=== PATIENT | female | born 1955 | race Caucasian/White ===

== ENCOUNTER → 2018-11-05 | Outpatient (CLI) | payer OTHER ==
[~2018-11-05] MED LIST: ALLEGRA 180MG180 MG PO; ALLEGRA-D 24HOU1 T24 PO; DIOVAN HCT 25 M1 TA1 PO; EFFEXOR-XR150 MG PO; NEXIUM 40MG40 MG PO; NORVASC5 MG PO; PROTONIX 40MG T40 MG PO; TYLENOL EXTRA500 M1 PO; ULTRAM 50MG TAB50 MG PO; XANAX .25M0.25 MG/TA PO; ZOCOR 20MG20 MG PO; ZOCOR 40MG40 MG PO
== END ==
LOC: MC.RAD 10:50
DX: Z12.31 Encounter for screening mammogram for malignant neoplasm of breast (principal)

== ENCOUNTER 2022-02-01 07:23 | Day surgery (SDC) | payer OTHER ==
[~2022-02-01] VITALS: Ht 160 cm; Wt 84.1 kg
[2022-02-01] VITALS (13 sets, daily range): BP systolic 109–145; BP diastolic 61–73; PULSE 56–67; TEMP 97.8
[~2022-02-01 07:23] MED LIST changes: +NORVASC 5MG5 MG/TAB PO; -NORVASC5 MG PO; +TYLENOL 8 HR PO; -TYLENOL EXTRA500 M1 PO
[2022-02-01 08:35] LABS: HEMOGLOBIN 11.5 g/dl (12.5-16.0); MEAN CELL VOLUME 102 fl (80.0-100.0); MEAN CORPUSCULAR HEMOGLOBIN 33 pg (27-31); MEAN CORPUSCULAR HGB CONC 33 g/dl (33.0-37.0); MEAN PLATELET VOLUME 9.9 fl (7.4-10.4); PLATELET COUNT 306 K/mm3 (130-400); RED BLOOD COUNT 3.44 M/mm3 (4.10-5.30); REDCELL DISTRIBUTION WIDTH-CV 14.2 % (11.5-14.5)
[2022-02-01 08:36] LABS: HEMATOCRIT 34.9 % (37.0-47.0)
[2022-02-01] MEDS ORDERED: PROLIA60 MG/ML SQ (08:41)
[2022-02-01 08:42] LABS: INR 0.9 (0.8-3.0); PROTHROMBIN TIME 10.6 SECONDS (9.7-12.8)
[2022-02-01] MEDS ORDERED: TOPROL XL 25MG25 MG PO (08:42)
[2022-02-01] MEDS ORDERED: ZYLOPRIM 300MG300 MG PO (08:43)
[2022-02-01 08:45] LABS: PARTIAL THROMBOPLASTIN TIME 34.8 SECONDS (26.0-37.0)
[2022-02-01] MEDS ORDERED: LIPITOR 80MG80 MG PO (08:45)
[2022-02-01] MEDS ORDERED: WELLBUTRIN XL300 M1 PO (08:46)
[2022-02-01] MEDS ORDERED: CALCIUM 600MG+D1 TAB PO (08:50)
[2022-02-01] MEDS ORDERED: HYGROTON 2525 MG/TAB PO (08:50)
[2022-02-01 08:51] LABS: CALCIUM 9.9 mg/dL (8.4-10.2); CREATININE, serum 2.53 mg/dL (0.57-1.11); POTASSIUM 4.1 mmol/L (3.5-4.5)
[2022-02-01] MEDS ORDERED: CLOBEX 118 ML118 M1 TP (08:56)
[2022-02-01] MEDS ORDERED: CYMBALTA 60MG60 MG PO (08:57)
[2022-02-01] MEDS ORDERED: IRON PO (08:59)
[2022-02-01] MEDS ORDERED: BENICAR 20MG TA20 MG PO (09:03)
[2022-02-01] MEDS ORDERED: NATURAL POTASS595 MG PO (09:03)
[2022-02-01] MEDS ORDERED: VITAMIN D31000 I1 PO (09:04)
--- NOTE | 2022-02-01 10:00 | NUR ---
PATIENT ALERT AND ORIENTED, NO REPORTS OF CHEST PAIN. CONSENT VERIFIED. FAMILY IN WAITING ROOM. SEE MERGE FOR C D AREA SUPERVISOR DOCUMENTATION WELL MEDICATION ADMINISTRATION AND HEMODYNAMIC MONITORING AND VITALS.
--- NOTE | 2022-02-01 14:00 | NUR ---
all air relesased from band in 2-3 ml incriments.No bleeding observed at site.Right radial site dressed in coban and juvenal.
--- NOTE | 2022-02-01 14:29 | NUR ---
Discharge instructions given to pt.Pt verbalizes understanding.INT removed,catheter tip intact.Pt escorted out via wheelchair by this nurse.
== END 2022-02-01 15:35 ==
LOC: COL.CAR 07:23
PROVIDERS: Internal Medicine Cardiovascular Disease
DX: I42.9 Cardiomyopathy, unspecified (principal); I10 Essential (primary) hypertension; E78.2 Mixed hyperlipidemia; I35.2 Nonrheumatic aortic (valve) stenosis with insufficiency; I34.0 Nonrheumatic mitral (valve) insufficiency; Z79.899 Other long term (current) drug therapy
CPT/HCPCS: C1769; J1644; J2250; J2704; J3010

== ENCOUNTER 2023-09-26 14:24 | Outpatient (CLI) | payer OTHER ==
[~2023-09-26] VITALS: Ht 160 cm; Wt 87.0 kg
[~2023-09-26 14:24] MED LIST changes: +BENICAR 20MG TA20 MG PO; +CALCIUM 600MG+D1 TAB PO; +CLOBEX 118 ML118 M1 TP; +CYMBALTA 60MG60 MG PO; +HYGROTON 2525 MG/TAB PO; +IRON PO; +LIPITOR 80MG80 MG PO; +NATURAL POTASS595 MG PO; +PROLIA60 MG/ML SQ; +TOPROL XL 25MG25 MG PO; +VITAMIN D31000 I1 PO; +WELLBUTRIN XL300 M1 PO; +ZYLOPRIM 300MG300 MG PO
[2023-09-26] MEDS ORDERED: Denosumab 60 MG/ML SYRINGE SQ ONE (14:45)
[2023-09-26 14:51] VITALS: BP 143/81; PULSE 72; TEMP 9.1
== END 2023-09-26 14:56 | disposition home or self-care (01) ==
LOC: EUO 14:24
DX: M81.0 Age-related osteoporosis without current pathological fracture (principal)
CPT/HCPCS: J0897